=== PATIENT | female | born 1955 | race Caucasian/White ===

== ENCOUNTER 2018-08-24 07:51 | Day surgery (SDC) | payer MEDICARE, BC ==
[~2018-08-24] VITALS: Ht 144.8 cm; Wt 59.0 kg
[2018-08-24] MEDS ORDERED: LIP40 MT (08:53)
[2018-08-24] MEDS ORDERED: INSU100I28 SQ (08:53)
[2018-08-24] MEDS ORDERED: LOSA100T14 MT (08:53)
[2018-08-24] MEDS ORDERED: INSLIS SUBCUT (08:53)
[2018-08-24] MEDS ORDERED: ASPI-1160 MT (08:53)
[2018-08-24] MEDS ORDERED: NEBI10TA2 MT (08:53)
[2018-08-24] MEDS ORDERED: ZET10 MT (08:53)
[2018-08-24] MEDS ORDERED: CLON-457 MT (08:53)
[2018-08-24] MEDS ORDERED: AMLO5TAB88 MT (08:53)
[2018-08-24] MEDS ORDERED: METF-415 MT (08:53)
[2018-08-24] MEDS ORDERED: MIDAZOLAM HCL 2 MG/2 ML VIAL ONE (09:18)
[2018-08-24] MEDS ORDERED: FENTANYL CITRATE/PF 50MCG/ML 2ML VIAL ONE (09:18)
[2018-08-24] MEDS ORDERED: IODIXANOL 320MG/ML 100 ML BOTTLE IV ONE (09:19)
[2018-08-24] MEDS ORDERED: ASPIRIN/SOD BICARB/CITRIC ACID 324MG TAB EFF ONE (09:19)
[2018-08-24] MEDS ORDERED: LIDOCAINE HCL 1% 20ML VIAL (Pyxis) INJ ONE (09:19)
[2018-08-24] MEDS ORDERED: ONDANSETRON HCL 4MG/2ML INJ IV PRN (10:30)
[2018-08-24] MEDS ORDERED: ATROPINE SULFATE 1MG/10ML SYR IV PRN (10:30)
[2018-08-24] MEDS ORDERED: ACETAMINOPHEN 325MG TABLET PO PRN (10:30)
[2018-08-24] MEDS ORDERED: MORPHINE SULFATE 2 MG/ML CPJ (NOT FOR IM USE) IV PRN (10:30)
[2018-08-24] MEDS ORDERED: NICARDIPINE 100MCG/ML 10ML VIAL (CATH LAB) IV ONE (13:23)
[2018-08-24] MEDS ORDERED: HEPARIN SODIUM 1,000 UNIT/1ML VIAL IV ONE (13:23)
[2018-08-24] MEDS ORDERED: NITROGLYCERIN 50MCG/ML 10ML VIAL (CATH LAB) IV ONE (13:23)
== END 2018-08-24 17:00 | disposition home or self-care (01) ==
LOC: CCL 07:51
PROVIDERS: ATTEND Specialist
DX: I25.10 Atherosclerotic heart disease of native coronary artery without angina pectoris (principal); E11.9 Type 2 diabetes mellitus without complications; E78.00 Pure hypercholesterolemia, unspecified; I10 Essential (primary) hypertension; Z95.1 Presence of aortocoronary bypass graft; Z79.899 Other long term (current) drug therapy; Z88.5 Allergy status to narcotic agent; Z79.4 Long term (current) use of insulin; Z79.84 Long term (current) use of oral hypoglycemic drugs
CPT/HCPCS: 82962; 93459; 99152; 99153; C1769; C1887; C1893; J1644; J2250; J3010; J3490; Q9967; G0500

== ENCOUNTER 2019-06-02 16:06 | Inpatient (IN) | payer MEDICARE, BC ==
[~2019-06-02] VITALS: Ht 144.8 cm; Wt 60.8 kg
[~2019-06-02 16:06] MED LIST: AMLO5TAB88 MT; ASPI-1160 MT; CLON-457 MT; EZET10TA13 MT; INSLIS SUBCUT; INSU100I28 SQ; LIP40 MT; LOSA100T32 MT; METF-415 MT; NEBI10TA2 MT
[2019-06-02] MEDS ORDERED: ASPIRIN 81MG TABLET PO ONE (18:00)
[2019-06-02 18:14] LABS: BASOPHILS % 0.7 % (0.0-2.0); EOSINOPHILS % 1.1 % (0.0-5.0); HEMATOCRIT. 33.7 % (36.0-48.0); HEMOGLOBIN. 11.4 g/dL (12.0-16.0); LYMPHOCYTES % 29.9 % (20.0-50.0); MEAN CORPUSCULAR HEMOGLOBIN 29.6 pg (28.0-32.0); MEAN CORPUSCULAR VOLUME 87.3 fL (81.0-99.0); MEAN PLATELET VOLUME 8.1 fl (7.4-10.4); NEUTROPHILS % 61.3 % (40.0-76.0); PLATELET 258 x1000/uL (130-400); RED BLOOD CELL COUNT 3.86 mill/uL (4.2-5.4)
[2019-06-02 18:18] LABS: CHLORIDE 105 mEq/L (98-107)
[2019-06-02] MEDS ORDERED: ATORVASTATIN CALCIUM 40MG TABLET PO NR (20:30)
[2019-06-02] MEDS ORDERED: ACETAMINOPHEN 325MG TABLET PO PRN (20:30)
[2019-06-02] MEDS ORDERED: CLONIDINE 0.1MG TABLET PO PRN (20:30)
[2019-06-02] MEDS ORDERED: ONDANSETRON HCL 4MG/2ML INJ IV PRN (20:30)
[2019-06-03] VITALS (7 sets, daily range): BP systolic 138–168; BP diastolic 47–53
[2019-06-03] MEDS ORDERED: DEXTROSE 50% WATER 50ML SYRINGE IV PRN (01:00)
[2019-06-03] MEDS ORDERED: ALD2525 PO (01:32)
[2019-06-03] MEDS ORDERED: DOXA1TAB2 PO (01:32)
[2019-06-03] MEDS ORDERED: CHLO25TA2 PO (01:32)
[2019-06-03] MEDS: BLOOD SUGAR DIAGNOSTIC STRIP TEST SCH ×4 (06:33→21:00)
[2019-06-03 07:28] LABS: *COCAINE SCREEN URINE NEGATIVE (NEGATIVE); METHADONE URINE SCREEN NEGATIVE (NEGATIVE); OPIATES URINE SCREEN NEGATIVE (NEGATIVE)
[2019-06-03 07:29] LABS: *AMPHETAMINES SCREEN URINE NEGATIVE (NEGATIVE); *BARBITURATES SCREEN URINE NEGATIVE (NEGATIVE); *BENZODIAZEPINES SCREEN URINE NEGATIVE (NEGATIVE); CANNABINOID URINE SCREEN NEGATIVE (NEGATIVE); PHENCYCLIDINE URINE SCREEN NEGATIVE (NEGATIVE)
[2019-06-03 07:50] LABS: BASOPHILS % 0.5 % (0.0-2.0); EOSINOPHILS % 2.3 % (0.0-5.0); HEMATOCRIT. 30.7 % (36.0-48.0); HEMOGLOBIN. 10.6 g/dL (12.0-16.0); LYMPHOCYTES % 37.5 % (20.0-50.0); MEAN CORPUSCULAR HEMOGLOBIN 29.7 pg (28.0-32.0); MEAN CORPUSCULAR VOLUME 85.9 fL (81.0-99.0); MEAN PLATELET VOLUME 8.8 fl (7.4-10.4); MONOCYTES % 7.6 % (2.0-8.0); NEUTROPHILS % 52.1 % (40.0-76.0); PLATELET 220 x1000/uL (130-400); RED BLOOD CELL COUNT 3.57 mill/uL (4.2-5.4)
[2019-06-03 08:08] LABS: CHLORIDE 107 mEq/L (98-107)
[2019-06-03] MEDS: INSULIN LISPRO 100 UNITS/ML SUBCUT SCH ×4 (08:28→21:00)
[2019-06-03 08:33] LABS: LDL CHOLESTEROL 65 mg/dL (5-100)
[2019-06-03 08:35] LABS: HDL CHOLESTEROL 47 mg/dL (40-59)
[2019-06-03] MEDS: HEPARIN 5000 UNITS/ML VIAL SUBCUT SCH ×2 (10:40→22:02)
[2019-06-03] MEDS ORDERED: ASPIRIN 81MG TABLET PO SCH (12:00)
[2019-06-03] MEDS ORDERED: EZETIMIBE 10MG TABLET PO SCH ×2 (12:00→13:00)
[2019-06-03] MEDS ORDERED: AMLODIPINE 5MG TABLET PO SCH (12:00)
[2019-06-03] MEDS: CHLORTHALIDONE 25MG TABLET PO SCH (13:13)
[2019-06-03] MEDS ORDERED: NEBIVOLOL HCL 5 MG TABLET PO SCH ×2 (13:15→21:00)
[2019-06-03] MEDS ORDERED: SODIUM CHLORIDE 0.9% 1,000 ML IV SCH (16:00)
[2019-06-03] MEDS ORDERED: DOXAZOSIN MESYLATE 2MG TABLET PO SCH (21:00)
[2019-06-03] MEDS ORDERED: ATORVASTATIN CALCIUM 40MG TABLET PO SCH (21:00)
[2019-06-03] MEDS: AMLODIPINE 5MG TABLET PO SCH (22:01)
[2019-06-04] VITALS: BP 135/50
[2019-06-04 04:00] VITALS: BP 138/48
[2019-06-04 06:05] LABS: BASOPHILS % 0.6 % (0.0-2.0); EOSINOPHILS % 2.9 % (0.0-5.0); HEMATOCRIT. 34.2 % (36.0-48.0); HEMOGLOBIN. 11.4 g/dL (12.0-16.0); LYMPHOCYTES % 42.5 % (20.0-50.0); MEAN CORPUSCULAR HEMOGLOBIN 28.9 pg (28.0-32.0); MEAN CORPUSCULAR VOLUME 86.3 fL (81.0-99.0); MEAN PLATELET VOLUME 8.7 fl (7.4-10.4); MONOCYTES % 8.2 % (2.0-8.0); NEUTROPHILS % 45.8 % (40.0-76.0); PLATELET 244 x1000/uL (130-400); RED BLOOD CELL COUNT 3.97 mill/uL (4.2-5.4); RED CELL DISTRIBUTION WIDTH 14.1 % (11.6-14.6)
[2019-06-04] MEDS: BLOOD SUGAR DIAGNOSTIC STRIP TEST SCH (06:43)
[2019-06-04 08:00] VITALS: BP 129/72
[2019-06-04] MEDS: CHLORTHALIDONE 25MG TABLET PO SCH (08:46)
[2019-06-04] MEDS: AMLODIPINE 5MG TABLET PO SCH (08:46)
[2019-06-04] MEDS: HEPARIN 5000 UNITS/ML VIAL SUBCUT SCH (08:49)
[2019-06-04] MEDS: INSULIN LISPRO 100 UNITS/ML SUBCUT SCH (08:53)
[2019-06-04] MEDS ORDERED: ASPIRIN 81MG EC TABLET PO SCH (09:00)
[2019-06-04] MEDS ORDERED: LOSARTAN POTASSIUM 100 MG TABLET PO SCH (09:00)
[2019-06-04] MEDS ORDERED: INSULIN GLARGINE UD 100 UNITS/ML SYR SUBCUT SCH ×2 (10:00)
[2019-06-04 11:15] VITALS: BP 129/72
[2019-06-04 12:21] VITALS: BP 132/78
== END 2019-06-04 11:45 | disposition home or self-care (01) | DRG 552 ==
LOC: ER 16:06 → 6WST 20:35 → EDBEDREQ 20:37 → EDBEDREQTM 20:37 → ENRESERV 23:12
PROVIDERS: ADMIT Internal Medicine; ATTEND Internal Medicine
DX: M46.02 Spinal enthesopathy, cervical region (principal); N17.9 Acute kidney failure, unspecified; M48.02 Spinal stenosis, cervical region; D64.9 Anemia, unspecified; E11.22 Type 2 diabetes mellitus with diabetic chronic kidney disease; E78.5 Hyperlipidemia, unspecified; R07.89 Other chest pain; I13.10 Hypertensive heart and chronic kidney disease without heart failure, with stage 1 through stage 4 chronic kidney disease, or unspecified chronic kidney disease; I25.10 Atherosclerotic heart disease of native coronary artery without angina pectoris; R00.1 Bradycardia, unspecified; E11.65 Type 2 diabetes mellitus with hyperglycemia; K21.9 Gastro-esophageal reflux disease without esophagitis; N18.3 Chronic kidney disease, stage 3 (moderate); M47.22 Other spondylosis with radiculopathy, cervical region; Z82.3 Family history of stroke; Z82.49 Family history of ischemic heart disease and other diseases of the circulatory system; Z87.442 Personal history of urinary calculi; Z88.2 Allergy status to sulfonamides; Z88.5 Allergy status to narcotic agent; Z90.49 Acquired absence of other specified parts of digestive tract; Z95.1 Presence of aortocoronary bypass graft; Z95.5 Presence of coronary angioplasty implant and graft; Z88.6 Allergy status to analgesic agent; Z79.4 Long term (current) use of insulin; Z79.899 Other long term (current) drug therapy; Z88.8 Allergy status to other drugs, medicaments and biological substances
CPT/HCPCS: 36415; 71045; 80048; 80053; 80061; 80305; 82962; 83036; 83735; 83880; 84484; 85025; 93005; 97162; 99285; J1644; J1815; J7030

== ENCOUNTER → 2021-07-26 | Day surgery (SDC) | payer MEDICARE, BC ==
[~2021-07-26] MED LIST changes: +ALD2525 PO; +CHLO25TA2 PO; +DOXA1TAB2 PO; +LIDOCAINE HCL 1% 10 MG/ML 10ML VIAL ONE; +SODIUM BICARBONATE 4% (2.4MEQ) 5ML VIAL IV ONE
== END | disposition home or self-care (01) ==
LOC: RAD 09:37
PROVIDERS: ATTEND Specialist
DX: E04.1 Nontoxic single thyroid nodule (principal); Z79.82 Long term (current) use of aspirin; Z79.4 Long term (current) use of insulin; Z79.899 Other long term (current) drug therapy; Z88.5 Allergy status to narcotic agent
CPT/HCPCS: 10005; 88172; 88173; J3490

== ENCOUNTER → 2021-11-18 | Outpatient (CLI) | payer MEDICARE, BC ==
[~2021-11-18] MED LIST changes: +DOXA1TAB MT; +DOXA1TAB PO; +FAMO40TA70 MT; +INSU300I3 SQ; +LEVO25TA7 MT; -LIDOCAINE HCL 1% 10 MG/ML 10ML VIAL ONE; -SODIUM BICARBONATE 4% (2.4MEQ) 5ML VIAL IV ONE; +TORS5TAB11 PO
== END | disposition home or self-care (01) ==
LOC: LAB 09:42
PROVIDERS: ATTEND Specialist
DX: R06.02 Shortness of breath (principal); Z20.822 Contact with and (suspected) exposure to COVID-19
CPT/HCPCS: 87426; C9803

== ENCOUNTER → 2021-11-19 | Day surgery (SDC) | payer MEDICARE, BC ==
[~2021-11-19] VITALS: Ht 142.2 cm; Wt 61.7 kg
[~2021-11-19] MED LIST changes: +ASPIRIN/SOD BICARB/CITRIC ACID 324MG TAB EFF ONE; +BLOOD SUGAR DIAGNOSTIC STRIP TEST SCH; +DEXTROSE 50% WATER 50ML SYRINGE IV PRN; +FENTANYL CITRATE/PF 50MCG/ML 2ML VIAL ONE; +HEPARIN 1000 UNITS/ML 10ML ONE; +HYDRALAZINE 20MG/ML VIAL IV PRN; +HYDRALAZINE 20MG/ML VIAL ONE; +INSULIN LISPRO 100 UNITS/ML SUBCUT SCH; +IODIXANOL 320MG/ML 100 ML BOTTLE IV ONE; +LIDOCAINE HCL 1% 10 MG/ML 10ML VIAL ONE; +MIDAZOLAM HCL 2 MG/2 ML VIAL ONE; +NICARDIPINE 100MCG/ML 10ML VIAL (CATH LAB) IV ONE; +NITROGLYCERIN 50MCG/ML 10ML VIAL (CATH LAB) IV ONE; +SODIUM CHLORIDE 0.45% 1,000 ML IV SCH
[2021-11-19 10:29] LABS: BASOPHILS % 0.5 % (0.0-2.0); EOSINOPHILS % 2.7 % (0.0-5.0); LYMPHOCYTES % 26.6 % (20.0-50.0); MEAN CORPUSCULAR HEMOGLOBIN 30.3 pg (28.0-32.0); MEAN CORPUSCULAR VOLUME 88.4 fL (81.0-99.0); MEAN PLATELET VOLUME 7.6 fl (7.4-10.4); MONOCYTES % 6.9 % (2.0-8.0); NEUTROPHILS % 63.3 % (40.0-76.0); PLATELET 195 x1000/uL (130-400); RED BLOOD CELL COUNT 3.28 mill/uL (4.2-5.4); RED CELL DISTRIBUTION WIDTH 12.7 % (11.6-14.6)
== END | disposition home or self-care (01) ==
LOC: CCL 06:45
PROVIDERS: ATTEND Specialist
DX: I25.10 Atherosclerotic heart disease of native coronary artery without angina pectoris (principal); I70.90 Unspecified atherosclerosis; I10 Essential (primary) hypertension; E78.5 Hyperlipidemia, unspecified; E03.9 Hypothyroidism, unspecified; Z95.1 Presence of aortocoronary bypass graft; Z88.5 Allergy status to narcotic agent; Z79.899 Other long term (current) drug therapy; Z98.890 Other specified postprocedural states; Z79.82 Long term (current) use of aspirin; Z79.4 Long term (current) use of insulin; Z82.49 Family history of ischemic heart disease and other diseases of the circulatory system
CPT/HCPCS: 36415; 85025; 93459; 99152; 99153; C1760; C1769; C1887; C1893; J0360; J1644; J2250; J3010; J3490; Q9967; G0500

== ENCOUNTER 2022-04-03 08:10 | Emergency (ER) | payer MEDICARE, BC ==
[~2022-04-03] VITALS: Ht 144.8 cm; Wt 63.0 kg
[~2022-04-03 08:10] MED LIST changes: -ALD2525 PO; -AMLO5TAB88 MT; -ASPIRIN/SOD BICARB/CITRIC ACID 324MG TAB EFF ONE; -BLOOD SUGAR DIAGNOSTIC STRIP TEST SCH; -CHLO25TA2 PO; -DEXTROSE 50% WATER 50ML SYRINGE IV PRN; -DOXA1TAB2 PO; -FENTANYL CITRATE/PF 50MCG/ML 2ML VIAL ONE; -HEPARIN 1000 UNITS/ML 10ML ONE; -HYDRALAZINE 20MG/ML VIAL IV PRN; -HYDRALAZINE 20MG/ML VIAL ONE; -INSU100I28 SQ; -INSULIN LISPRO 100 UNITS/ML SUBCUT SCH; -IODIXANOL 320MG/ML 100 ML BOTTLE IV ONE; -LIDOCAINE HCL 1% 10 MG/ML 10ML VIAL ONE; -METF-415 MT; -MIDAZOLAM HCL 2 MG/2 ML VIAL ONE; -NEBI10TA2 MT; -NICARDIPINE 100MCG/ML 10ML VIAL (CATH LAB) IV ONE; -NITROGLYCERIN 50MCG/ML 10ML VIAL (CATH LAB) IV ONE; -SODIUM CHLORIDE 0.45% 1,000 ML IV SCH
[2022-04-03 08:13] VITALS: BP 135/58
== END 2022-04-03 10:27 | disposition home or self-care (01) ==
LOC: ER 08:10
DX: R19.7 Diarrhea, unspecified (principal); I13.11 Hypertensive heart and chronic kidney disease without heart failure, with stage 5 chronic kidney disease, or end stage renal disease; E11.22 Type 2 diabetes mellitus with diabetic chronic kidney disease; N18.6 End stage renal disease; Z79.4 Long term (current) use of insulin; Z95.1 Presence of aortocoronary bypass graft; Z88.6 Allergy status to analgesic agent; Z79.82 Long term (current) use of aspirin; Z87.01 Personal history of pneumonia (recurrent); Z90.49 Acquired absence of other specified parts of digestive tract; Z87.442 Personal history of urinary calculi; Z98.890 Other specified postprocedural states
CPT/HCPCS: 36415; 80048; 99283

== ENCOUNTER 2022-11-17 18:55 | Emergency (ER) | payer MEDICARE, BC ==
[~2022-11-17] VITALS: Ht 149.9 cm; Wt 54.0 kg
[~2022-11-17 18:55] MED LIST changes: -DOXA1TAB MT; -DOXA1TAB PO; +DOXA1TAB66 MT; +DOXA1TAB66 PO; -LOSA100T32 MT; +LOSA100T33 MT
[2022-11-17 19:03] VITALS: BP 161/73; PULSE 63; RESP 20; TEMP 98.1; O2SAT 97
[2022-11-17 19:47] LABS: BASOPHILS % 0.4 % (0.0-2.0); EOSINOPHILS % 2.3 % (0.0-5.0); HEMATOCRIT. 28.6 % (36.0-48.0); HEMOGLOBIN. 9.8 g/dL (12.0-16.0); LYMPHOCYTES % 34.9 % (20.0-50.0); MEAN CORPUSCULAR HEMOGLOBIN 30.8 pg (28.0-32.0); MEAN CORPUSCULAR HGB CONC 34.1 g/dL (31.0-37.0); MEAN CORPUSCULAR VOLUME 90.2 fL (81.0-99.0); MEAN PLATELET VOLUME 8.8 fl (7.4-10.4); MONOCYTES % 8.9 % (2.0-8.0); NEUTROPHILS % 53.5 % (40.0-76.0); PLATELET 193 x1000/uL (130-400); RED BLOOD CELL COUNT 3.17 mill/uL (4.2-5.4); RED CELL DISTRIBUTION WIDTH 13.2 % (11.6-14.6); WHITE BLOOD COUNT 6.4 x1000/uL (4.5-11.0)
[2022-11-17 20:17] LABS: CHLORIDE 109 mEq/L (98-107); INDEX HEMOLYSI 1 (1-3); INDEX ICTERIC 1 (1-4); INDEX LIPEMIC 1 (1-3); POTASSIUM 4.9 mEq/L (3.5-5.1); SODIUM 138 mEq/L (136-145)
[2022-11-17 20:31] LABS: ALANINE AMINOTRANSFERASE 39 IU/L (13-61); ALBUMIN 3.5 g/dL (3.4-5.0); ASPARTATE AMINOTRANSFERASE 34 IU/L (15-37); BILIRUBIN TOTAL 0.3 mg/dL (0.1-1.0); CALCIUM 8.5 mg/dL (8.5-10.1); CARBON DIOXIDE 25 mEq/L (21-32); CREATININE 2.9 mg/dL (0.6-1.3); GLUCOSE 116 mg/dL (70-105); PROTEIN TOTAL 6.7 g/dL (6.0-8.3); UREA NITROGEN BLOOD 54 mg/dL (7-21)
[2022-11-17 20:55] LABS: TROPONIN I HIGH SENSITIVITY 219 ng/L (<54)
[2022-11-17] MEDS ORDERED: ASPIRIN 81MG TABLET PO ONE (22:30)
== END 2022-11-18 00:28 | disposition left against medical advice (07) ==
LOC: ER 18:55 → CANBEDREQ 11-19 22:08
DX: R07.89 Other chest pain (principal)
CPT/HCPCS: 36415; 71045; 80053; 84484; 85025; 93005; 99281; 99285